=== PATIENT | female | born 1990 | race Two or more races ===

== ENCOUNTER 2017-04-18 11:06 | Emergency (ER) | payer MEDICAID ==
[~2017-04-18] VITALS: Ht 160 cm; Wt 50.3 kg
--- NOTE | 2017-04-18 11:13 | NUR ---
A/OX3, AMBULATORY IN A STEADY GAIT TO ED BED 03 W/ C/O HEADACHE X 5 DAYS. +NEURO INTACT. VSS NAD RR EVEN AND UNLABORED. SKIN IS WARM AND NON DIAPHORETIC.
--- NOTE | 2017-04-18 11:30 | NUR ---
PT TAKEN TO CT.
--- NOTE | 2017-04-18 12:15 | NUR ---
Patient discharged to home in stable condition. Pt left before discharge papers.
[2017-04-18 12:33] VITALS: BP 121/84
== END 2017-04-18 12:34 | disposition home or self-care (01) ==
LOC: ER 11:09
DX: G44.209 Tension-type headache, unspecified, not intractable (principal); R94.02 Abnormal brain scan
CPT/HCPCS: 70450; 99284; A4606; Z7610

== ENCOUNTER 2017-07-18 08:49 | Emergency (ER) | payer MEDICAID ==
[~2017-07-18] VITALS: Ht 165.1 cm; Wt 54.4 kg
[2017-07-18 08:55] VITALS: BP 93/52
== END 2017-07-18 09:07 | disposition home or self-care (01) ==
LOC: ER 08:51
DX: B34.9 Viral infection, unspecified (principal)
CPT/HCPCS: 99283; A4606; Z7610

== ENCOUNTER 2019-11-09 20:59 | Emergency (ER) | payer MEDICAID ==
[~2019-11-09] VITALS: Ht 162.6 cm; Wt 51.7 kg
--- NOTE | 2019-11-09 21:35 | NUR ---
XRAY AT BEDSIDE.
[2019-11-09 21:42] VITALS: BP 124/68
== END 2019-11-09 22:46 | disposition home or self-care (01) ==
LOC: ER 21:02
DX: S92.352A Displaced fracture of fifth metatarsal bone, left foot, initial encounter for closed fracture (principal); X58.XXXA Exposure to other specified factors, initial encounter; Y93.41 Activity, dancing; Y92.89 Other specified places as the place of occurrence of the external cause; Y99.8 Other external cause status
CPT/HCPCS: 73630-TC

== ENCOUNTER 2019-11-11 16:34 | Emergency (ER) | payer MEDICAID ==
[~2019-11-11] VITALS: Ht 162.6 cm; Wt 53.5 kg
[2019-11-11 16:42] VITALS: BP 135/81
--- NOTE | 2019-11-11 17:10 | NUR ---
CRUTCHES PROVIDED BY [employer].
--- NOTE | 2019-11-11 17:13 | NUR ---
Patient discharged to home in stable condition. Written and verbal after care instructions given. Patient verbalizes understanding of instruction.
== END 2019-11-11 17:14 | disposition home or self-care (01) ==
LOC: ER 16:37
DX: S82.892A Other fracture of left lower leg, initial encounter for closed fracture (principal); X58.XXXA Exposure to other specified factors, initial encounter; Y93.89 Activity, other specified; Y92.89 Other specified places as the place of occurrence of the external cause; Y99.8 Other external cause status